=== PATIENT | male | born 2000 | race Caucasian/White ===

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

== ENCOUNTER 2020-01-02 14:51 | Emergency (ER) | payer OTHER ==
[2020-01-02 15:10] VITALS: BP 109/68; PULSE 72; BMI 32.7
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
--- NOTE | 2020-01-03 09:20 | EKG ---
Test Reason : Blood Pressure : / mmHG Vent. Rate : 055 BPM Atrial Rate : 055 BPM P-R Int : 176 ms QRS Dur : 090 ms QT Int : 408 ms P-R-T Axes : 032 070 041 degrees QTc Int : 390 ms SINUS BRADYCARDIA NONSPECIFIC T WAVE ABNORMALITY NONSPECIFIC INTRAVENTRICULAR CONDUCTION DEFECT ABNORMAL ECG Confirmed by HUDSON HUNTER MD ([id number]) on 01/03/2020 9:20:15 AM Referred By: Confirmed By:HUDSON HUNTER MD
== END 2020-01-02 16:57 | disposition home or self-care (01) ==
LOC: JER 14:51
DX: R55 Syncope and collapse (principal)
CPT/HCPCS: 82962; 93005; 93010; 99284-25

== ENCOUNTER 2021-04-03 23:26 | Emergency (ER) | payer OTHER ==
[2021-04-03 23:36] VITALS: BP 150/89; PULSE 92; TEMP 98.2; BMI 32.8
[2021-04-04 01:47] LABS: BASO % 0.4 % (0-2.0); EOS % 1.7 % (0-4.5); HEMOGLOBIN 14.5 GM/dL (11.7-16.9); LYMPH % 23.8 % (8-40); MCH 27.7 pg (25.7-33.7); MCHC 34.5 g/dl (32.0-35.9); MEAN CELL VOLUME 80.5 fl (80-96); MEAN PLT VOLUME 7.6 fl (7.5-11.1); NEUT % 66.1 % (42.8-82.8); PLATELET COUNT 247 10^3/uL (134-434); RBC 5.22 M/mm3 (4.00-5.60); RDW 13.1 % (11.9-15.9); WHITE BLOOD COUNT 8.9 K/mm3 (4.0-10.0)
[2021-04-04 02:00] LABS: CHLORIDE 107 mmol/L (98-107); SODIUM 140 mmol/L (136-145)
[2021-04-04 02:02] LABS: CALCIUM 9.3 mg/dL (8.5-10.1)
[2021-04-04 02:03] LABS: ANION GAP 9 MMOL/L (8-16); BLOOD UREA NITROGEN 20.2 mg/dL (7-18); CO2 24 mmol/L (21-32); GLUCOSE,RANDOM 97 mg/dL (74-106)
[2021-04-04 02:06] LABS: CREATININE 0.9 mg/dL (0.55-1.3); SGOT/AST 16 U/L (15-37); SGPT/ALT 38 U/L (13-61)
[2021-04-04 02:07] LABS: BILIRUBIN,TOTAL 0.5 mg/dL (0.2-1); TOT PROT 7.6 g/dl (6.4-8.2)
[2021-04-04 02:08] LABS: ALK PHOS 76 U/L (45-117)
[2021-04-04] MEDS ORDERED: ALPRAZolam 1 MG TABLET PO PRN (02:13)
[2021-04-04] MEDS ORDERED: ALPRAZolam 0.25 MG TABLET ONE (02:34)
== END 2021-04-04 03:26 | disposition home or self-care (01) ==
LOC: JER 23:26
DX: F41.9 Anxiety disorder, unspecified (principal); R07.9 Chest pain, unspecified
CPT/HCPCS: 36415; 71046-TC-FY; 80053; 84484; 85025; 93005; 93010; 99285-25